=== PATIENT | female | born 1945 | race Caucasian/White ===

== ENCOUNTER 2019-07-03 13:46 | Emergency (ER) | payer MEDICARE ==
[2019-07-03] MEDS ORDERED: ACETAMINOPHEN 325 MG TABLET PO ONE (14:02)
[2019-07-03] MEDS ORDERED: ALPRAZOLAM 0.25 MG TABLET PO ONE (14:02)
--- NOTE | 2019-07-03 14:04 | ER Document Report ---
ED Medical Screen (RME) - General Chief Complaint: Hip Pain Stated Complaint: HIP/LEG PAIN Time Seen by Provider: 07/03/19 13:50 Mode of Arrival: Wheelchair Information source: Patient Notes: Patient presents complaining of left hip pain that radiates into the left lower extremity for the past 3 days. Patient states yesterday she fell down 2 stairs injuring the left hip. Patient complains of difficulty walking due to pain. Patient is extremely anxious in triage. I have greeted and performed a rapid initial assessment of this patient. A comprehensive ED assessment and evaluation of the patient, analysis of test results and completion of the medical decision making process will be conducted by additional ED providers. - Related Data Allergies/Adverse Reactions: No Known Allergies Allergy (Verified 07/03/19 13:57) Physical Exam - General General appearance: Alert, Anxious Notes: L hip tenderness
--- NOTE | 2019-07-03 14:58 | RADIOLOGY REPORT (SQ) ---
EXAM DESCRIPTION: L SPINE WHOLE COMPLETED DATE/TIME: 07/03/2019 2:44 pm REASON FOR STUDY: fall, L hip, LLE pain COMPARISON: None. NUMBER OF VIEWS: Five views including obliques. TECHNIQUE: AP, lateral, oblique, and sacral radiographic images acquired of the lumbar spine. LIMITATIONS: None. FINDINGS: MINERALIZATION: Normal. SEGMENTATION: Normal. No transitional anatomy. ALIGNMENT: Normal. VERTEBRAE: Maintained height. No fracture or worrisome bone lesion. DISCS: Disc space loss of height at L3-4, L4-5, L5-S1. POSTERIOR ELEMENTS: Pedicles and facets are intact. No pars defect or posterior arch defects. Advanc ed bilateral facet arthropathy at L5-S1 HARDWARE: None in the spine. PARASPINAL SOFT TISSUES: Normal. PELVIS: SI joints intact. OTHER: No other significant finding. IMPRESSION: Mild degenerative changes lower lumbar spine. No acute fracture or malalignment. TECHNICAL DOCUMENTATION: JOB ID: [id number] [employer]- All Rights Reserved Reading location - IP/workstation name: [email or web address]
--- NOTE | 2019-07-03 14:58 | RADIOLOGY REPORT (SQ) ---
EXAM DESCRIPTION: HIP LEFT AP/LATERAL COMPLETED DATE/TIME: 07/03/2019 2:44 pm REASON FOR STUDY: fall, L hip, LLE pain COMPARISON: None. NUMBER OF VIEWS: Two views. TECHNIQUE: AP pelvis and additional frog-leg view of the left hip. LIMITATIONS: None. FINDINGS: MINERALIZATION: Normal. LEFT HIP: No fracture or dislocation. RIGHT HIP: No fracture or dislocation. PUBIS AND ISCHIUM: The ilioischial and iliopectineal lines are intact. There is no diastasis of the pubic symphysis. PELVIS: No fracture. SACRUM: Evaluation of the sacrum is obscured due to overlying bowel gas. LOWER LUMBAR SPINE: Degeneration of the L5-S1 facet joints. SOFT TISSUES: No findings. OTHER: There is a surgical clip projects within the left hemipelvis. IMPRESSION: Mild bilateral femoroacetabular joint osteoarthrosis without an associated fracture or d islocation. TECHNICAL DOCUMENTATION: JOB ID: [id number] [employer]- All Rights Reserved Reading location - IP/workstation name: [email or web address]
--- NOTE | 2019-07-03 15:27 | ER Document Report ---
HPI - HPI Time Seen by Provider: 07/03/19 13:50 Pain Level: 5 Notes: Patient is a 73-year-old female with a history of anxiety and hypertension who presents complaining of left buttock pain and left lateral hip pain for the past 3 days without precipitating event or injury. Patient states that yesterday she did lose her footing on 2 steps and landed on her buttock. Patient states that this did not make her pain any worse. She did not hit her head or lose conscio usness. Patient states that she has been ambulatory since then, but is limping and favoring the left leg. Patient states that the pain will occasionally radiate from her buttock down to the ankle approximate dermatome L3/L4. Patient states that movement does make her pain worse. Denies drug allergies. She is eating and drinking without difficulty. She is urinating normally and having normal bowel movements. No other concerns or complaints. Denies any headache, fever, head injury, neck pain, changes in vision/speech/mentation/hearing, URI, sore throat, chest pain, palpitations, syncope, cough, shortness of breath, wheeze, dyspnea, abdominal pain, nausea/vomiting/diarrhea, urinary retention, dysuria, hematuria, loss of control of bowel or bladder, numbness/tingling, saddle anesthesia, muscle paralysis/weakness, or rash. No h/o CKD. - ROS Systems Reviewed and Negative: Yes All other systems reviewed and negative - REPRODUCTIVE Reproductive: DENIES: : - MUSCULOSKELETAL Musculoskeletal: REPORTS: Extremity pain Past Medical History - General Information source: Patient - Social History Smoking Status: Never Smoker Chew tobacco use (# tins/day): No Frequency of alcohol use: None Drug Abuse: None Family History: Reviewed & Not Pertinent Patient has suicidal ideation: No Patient has homicidal ideation: No - Past Medical History Cardiac Medical History: Reports: Hx Hypertension Psychiatric Medical History: Reports: Hx Depression - anxiety Past Surgical History: Reports: Hx Cholecystectomy Vertical Provider Document - CONSTITUTIONAL Agree With Documented VS: Yes Notes: PHYSICAL EXAMINATION: GENERAL: Well-appearing, well-nourished and in no acute distress. LUNGS: Breath sounds clear to auscultation bilaterally and equal. No wheezes rales or rhonchi. HEART: Regular rate and rhythm without murmurs, rubs, gallops. ABDOMEN: Soft, nontender, nondistended abdomen. No guarding, no rebound. Normal bowel sounds present. No CVA tenderness bilaterally. No pulsatile mass Musculoskeletal: LE's b/l: FROM to passive/active. Strength 5+/5. No deficits noted. + mild tenderness, reproducible to complaint, of the left troch bursa area. Back: FROM to passive/active. Strength 5+/5. No vertebral point tenderness, stepoffs, or deformities. No other bony tenderness, erythema, swelling, or ecchymosis. SLR negative b/l. + left SI jt tenderness. No foot drop Extremities: No cyanosis, clubbing, or edema b/l. Peripheral pulses 2+. Capillary refill less than 2 seconds. NEUROLOGICAL: Normal speech, limping gait. Normal sensory, motor exams. Reflexes 2+ b/l. PSYCH: Normal mood, normal affect. SKIN: Warm, Dry, normal turgor, no rashes or lesions noted. - INFECTION CONTROL TRAVEL OUTSIDE OF THE [place] IN LAST 30 DAYS: No Course - Re-evaluation Re-evalutation: 07/03/19 15:31 Patient is an afebrile, well-hydrated, 73-year-old female who presents to the ED with left SI jt pain and suspected left trochanteric bursitis. Pt may have had radiculitis associated with the radiating pain, but that is currently resolved. Vitals are acceptable. PE is otherwise unremarkable for any focal neurological deficits. Patient was given Toradol, decadron. She has no significant tachycardia, tachypnea, or hypoxia. She is nontoxic-appearing and is tolerating p.o. without difficulties. There are no signs of infection. No other red flag symptoms noted. Pt able to ambulate and weight-bear more than 4 steps w/o difficulty, but small limp. No other labs or imaging warranted at this time based on H&P. Low suspicion for any meningitis, fracture, expanding/ruptured AAA, cauda equina syndrome, epidural mass lesion/abscess, herniated disc causing severe spinal stenosis, or other systemic infection at this time. Patient is aware that this condition can change from initial presentation and that she needs monitor symptoms closely for any acute changes. I will send her home with a prescription for naproxen, lidoderm patch, and give her a few tabs of tramadol to use only at night time. Pt requesting something for anxiety so I will give her hydroxyzine. Conservative measures otherwise for symptoms. Recheck with your PCM in 3-5 days. Consider consult with orthopedic/physical therapy. Return to the ED with any worsening/concerning symptoms otherwise as reviewed discharge. Patient is in agreement. - Vital Signs Vital signs: Temp Pulse Resp BP Pulse Ox 97.9 F 75 22 H 131/108 H 98 07/03/19 13:54 07/03/19 13:54 07/03/19 13:54 07/03/19 13:54 07/03/19 13:54 Discharge - Discharge Clinical Impression: Left hip pain, Trochanteric bursitis of left hip, Sacroiliitis Condition: Stable Disposition: HOME, SELF-CARE Additional Instructions: Rest, Ice Tylenol/ibuprofen as needed Light stretches daily Strength exercises as able Moist heat and massage may help F/u with your PCP in 3-5 days for a recheck Consider consult(s) with Orthopedics/physical therapy for ongoing/worsening symptoms Return to the ED with any worsening symptoms and/or development of fever, headache, chest pain, palpitations, syncope, shortness of breath, trouble breathing, abdominal pain, n/v/d, muscle weakness/paralysis, numbness/tingling, swelling, redness, or other worsening symptoms that are concerning to you. Prescriptions: Tramadol HCl [Ultram 50 mg Tablet] 50 mg PO QHS #6 tab Lidocaine [Lidoderm 5% (700 mg) Transdermal Patch] 1 patch TP DAILY #10 adh..patch Naproxen 500 mg PO BID #10 tablet Hydroxyzine Pamoate [Vistaril 25 mg Capsule] 25 mg PO TID PRN #15 capsule PRN Reason: Forms: Elevated Blood Pressure Referrals: [facility] [Provider Group] - Follow up as needed
[2019-07-03] MEDS ORDERED: KETOROLAC TROMETHAMINE 60 MG/2 ML SDV IM ONE (15:30)
[2019-07-03] MEDS ORDERED: DEXAMETHASONE SOD PHOS INJ 10 MG/1 ML VIAL IM ONE (15:30)
[2019-07-03 15:56] VITALS: BP 153/71
== END 2019-07-03 15:50 | disposition home or self-care (01) ==
LOC: ER 13:46
DX: M70.62 Trochanteric bursitis, left hip (principal); M46.1 Sacroiliitis, not elsewhere classified; M25.552 Pain in left hip; I10 Essential (primary) hypertension; F41.9 Anxiety disorder, unspecified
CPT/HCPCS: 99283; 73502; 72110; A9270 ×2; J1885; J1100